=== PATIENT | male | born 1965 | race Caucasian/White ===

== ENCOUNTER → 2020-04-10 | Outpatient (CLI) | payer OTHER ==
[~2020-04-10] MED LIST: AZIT500T10 PO
== END | disposition home or self-care (01) ==
LOC: CFH 10:33
PROVIDERS: ATTEND Internal Medicine Cardiovascular Disease
DX: I08.2 Rheumatic disorders of both aortic and tricuspid valves (principal); I25.10 Atherosclerotic heart disease of native coronary artery without angina pectoris; E78.5 Hyperlipidemia, unspecified; I10 Essential (primary) hypertension
CPT/HCPCS: 78452; 93017; 93306; A9502